=== PATIENT | female | born 1980 | race Two or more races ===

== ENCOUNTER 2019-12-06 16:44 | Emergency (ER) | payer SELFPAY ==
[~2019-12-06] VITALS: Ht 167.6 cm; Wt 58.1 kg
[2019-12-06 16:49] VITALS: BP 126/93
== END 2019-12-06 18:09 | disposition home or self-care (01) ==
LOC: ER 16:44
DX: R07.89 Other chest pain (principal)
CPT/HCPCS: 71101

== ENCOUNTER 2020-04-05 00:01 | Emergency (ER) | payer SELFPAY ==
[~2020-04-05] VITALS: Ht 167.6 cm; Wt 51.7 kg
[2020-04-05 02:19] LABS: Basophils # (auto) 0 10 ^3/uL (0-0.2); Basophils % (auto) 0.7 % (0.0-2.0); Eosinophils # (auto) 0.1 10 ^3/uL (0-0.8); Eosinophils % (auto) 2.2 % (0.0-7.0); Hematocrit 43.9 % (36.0-46.0); Hemoglobin 14.9 g/dL (12.2-16.2); Lymphocytes # (auto) 1.7 10 ^3/uL (0.4-5.4); Lymphocytes % (auto) 30.1 % (10.0-50.0); Mean Corpuscular Hemoglobin 31.1 pg (28.0-32.0); Mean Corpuscular Hgb Conc. 33.8 g/dL (32.0-36.0); Mean Corpuscular Volume 91.8 fL (80.0-100.0); Monocytes # (auto) 0.6 10 ^3/uL (0-1.3); Monocytes % (auto) 10.2 % (0.0-12.0); Neutrophils # (auto) 3.2 10 ^3/uL (1.6-8.6); Neutrophils % (auto) 56.8 % (37.0-80.0); Nucleated Red Blood Cells % 0.1 %; Platelet Count (auto) 267 10^3/uL (140-450); Red Blood Cells 4.79 10^6/uL (4.0-5.20); White Blood Cell 5.6 10^3/uL (4.4-10.8)
[2020-04-05 02:37] LABS: Albumin 4.4 g/dL (3.4-5.0); BUN/Creatinine Ratio 14.3; Calcium 9.3 mg/dL (8.5-10.1); Potassium 4.4 mmol/L (3.5-5.1)
[2020-04-05 02:39] LABS: Bilirubin, Total 0.5 mg/dL (0.2-1.0); Total Protein 8.2 g/dL (6.4-8.2)
[2020-04-05 08:02] VITALS: BP 111/78
== END 2020-04-05 08:36 | disposition home or self-care (01) ==
LOC: ER 00:01
DX: N93.8 Other specified abnormal uterine and vaginal bleeding (principal); N83.202 Unspecified ovarian cyst, left side; I10 Essential (primary) hypertension
CPT/HCPCS: 36415; 76830; 80053; 84702; 85025

== ENCOUNTER 2022-03-01 14:45 | Emergency (ER) | payer MEDICAID, OTHER ==
[2022-03-01 15:00] VITALS: BP 160/108
[2022-03-01 15:45] LABS: Hematocrit 41.8 % (36.0-46.0); Hemoglobin 13.6 g/dL (12.2-16.2); Mean Corpuscular Hemoglobin 29.6 pg (28.0-32.0); Mean Corpuscular Hgb Conc. 32.5 g/dL (32.0-36.0); Red Blood Cells 4.59 10^6/uL (4.0-5.20); Red Cell Distribution Width 13.4 % (11.8-14.3); White Blood Cell 4.7 10^3/uL (4.4-10.8)
[2022-03-01 16:03] LABS: BUN/Creatinine Ratio 19.4; Calcium 8.8 mg/dL (8.5-10.1); Potassium 4.3 mmol/L (3.5-5.1)
[2022-03-01 16:05] LABS: Basophils % (manual) 0 (0.0-2.0); Blast Cells 0; Metamyelocytes % 0; Myelocytes % 0; Promyelocytes % 0
[2022-03-01] MEDS ORDERED: KETOROLAC TROMETH 60MG/2ML VIAL IM ONE (16:15)
[2022-03-01 16:18] LABS: Urine Amorphous Crystal FEW /hpf (None Seen); Urine Bacteria MOD /hpf (None Seen); Urine Blood TRACE /uL (Negative); Urine Mucus FEW (None Seen); Urine Specific Gravity 1.027 (1.001-1.035); Urine WBC 4 /hpf (0 - 5)
[2022-03-01] MEDS ORDERED: IBUP600T27 PO (17:14)
[2022-03-01] MEDS ORDERED: TRIA37.56 PO (17:14)
[2022-03-01 17:23] LABS: Band Neutrophils % (manual) 3; Eosinophils % (manual) 3 (0-7); Lymphocytes % (manual) 25 (10.0-50.0); Monocytes % (manual) 17 (0-12); Reactive Lymphocytes 1
== END 2022-03-01 17:18 | disposition home or self-care (01) ==
LOC: ER 14:45
DX: N83.201 Unspecified ovarian cyst, right side (principal); N83.202 Unspecified ovarian cyst, left side; I10 Essential (primary) hypertension; Z79.1 Long term (current) use of non-steroidal anti-inflammatories (NSAID); Z79.899 Other long term (current) drug therapy
CPT/HCPCS: 36415; 76830; 76856; 80048; 81001; 81025; 85007; 85027; 96372; 99284; J1885

== ENCOUNTER 2022-08-29 10:26 | Emergency (ER) | payer MEDICAID ==
[~2022-08-29] VITALS: Ht 167.6 cm; Wt 50.7 kg
[~2022-08-29 10:26] MED LIST: IBUP600T27 PO; TRIA37.56 PO
[2022-08-29 11:06] LABS: Urine Bacteria NONE SEEN /hpf (None Seen); Urine Blood Negative /uL (Negative); Urine Mucus FEW (None Seen); Urine Specific Gravity 1.021 (1.001-1.035); Urine WBC 5 /hpf (0 - 5)
[2022-08-29 11:21] LABS: Hematocrit 46.2 % (36.0-46.0); Hemoglobin 15.5 g/dL (12.2-16.2); Mean Corpuscular Hemoglobin 30.5 pg (28.0-32.0); Mean Corpuscular Hgb Conc. 33.6 g/dL (32.0-36.0); Mean Corpuscular Volume 90.7 fL (80.0-100.0); Red Blood Cells 5.09 10^6/uL (4.0-5.20); Red Cell Distribution Width 13.6 % (11.8-14.3); White Blood Cell 3.2 10^3/uL (4.4-10.8)
[2022-08-29 11:22] LABS: Band Neutrophils % (manual) 0; Basophils % (manual) 0 (0.0-2.0); Blast Cells 0; Eosinophils % (manual) 0 (0-7); Metamyelocytes % 0; Myelocytes % 0; Promyelocytes % 0; Reactive Lymphocytes 0
[2022-08-29 11:29] LABS: Albumin 3.9 g/dL (3.4-5.0); BUN/Creatinine Ratio 22.1; Calcium 8.7 mg/dL (8.5-10.1); Potassium 4.2 mmol/L (3.5-5.1)
[2022-08-29 11:31] LABS: Bilirubin, Total 0.2 mg/dL (0.2-1.0); Total Protein 6.8 g/dL (6.4-8.2)
[2022-08-29 11:56] LABS: Lymphocytes % (manual) 36 (10.0-50.0)
[2022-08-29 11:57] LABS: Monocytes % (manual) 18 (0-12)
[2022-08-29] MEDS ORDERED: cloNIDine HCL 0.1 MG TAB PO ONE (13:45)
[2022-08-29 14:16] VITALS: BP 112/74
[2022-08-29] MEDS ORDERED: CLON0.1T PO (14:45)
== END 2022-08-29 14:48 | disposition home or self-care (01) ==
LOC: ER 10:26
DX: I10 Essential (primary) hypertension (principal)
CPT/HCPCS: 36415; 70450; 71045; 80053; 81001; 83880; 84484; 85007; 85027; 93005